=== PATIENT | male | born 1975 | race Caucasian/White ===

== ENCOUNTER → 2020-02-26 | Outpatient (CLI) | payer OTHER | END | disposition home or self-care (01) | LOC: STAR 11:01 | PROVIDERS: ATTEND Orthopaedic Surgery | DX: Z01.812 Encounter for preprocedural laboratory examination (principal); Z20.828 Contact with and (suspected) exposure to other viral communicable diseases | CPT/HCPCS: 87635 ==

== ENCOUNTER 2020-03-02 05:28 | Day surgery (SDC) | payer OTHER ==
[~2020-03-02] VITALS: Ht 182.9 cm; Wt 121.6 kg
[2020-03-02 06:07] VITALS: BP 159/91
[2020-03-02] MEDS ORDERED: CHLORHEXIDINE 15 ML UDC ONE (06:10)
[2020-03-02] MEDS ORDERED: EPINEPHRINE 1 MG/ML, 1ML ONE ×2 (06:11→06:13)
[2020-03-02] MEDS ORDERED: BUPIVACAINE/PF 0.25% ONE (06:11)
[2020-03-02] MEDS ORDERED: ROPIvacaine/PF 0.5%, 20 ML ONE (06:13)
[2020-03-02] MEDS ORDERED: LIDOCAINE 1%, 20ML ONE (06:13)
[2020-03-02] MEDS ORDERED: MIDAZOLAM 1 MG/ML, 5ML ONE (06:16)
[2020-03-02] MEDS ORDERED: FENTANYL PF 250 MCG/5ML ONE (06:17)
[2020-03-02] MEDS ORDERED: DIPHENHYDRAMINE 50 MG/ML, 1ML IVPush PRN (06:30)
[2020-03-02] MEDS ORDERED: LABETALOL 5MG/ML, 20ML IV PRN (06:30)
[2020-03-02] MEDS ORDERED: LACTATED RINGERS 1,000 ML IV SCH (06:30)
[2020-03-02] MEDS ORDERED: HYDROmorphone 1 MG/ML, 1ML INJ IVPush PRN (06:30)
[2020-03-02] MEDS ORDERED: PROMETHAZINE 25 MG/ML, 1ML IVPush PRN (06:30)
[2020-03-02] MEDS ORDERED: HALOPERIDOL 5 MG/ML IV PRN (06:30)
[2020-03-02] MEDS ORDERED: MEPERIDINE/PF 25MG/0.5ML IVPush PRN (06:30)
[2020-03-02] MEDS ORDERED: CHLORHEXIDINE 15 ML UDC MM ONE (06:30)
[2020-03-02] MEDS ORDERED: hydrALAzine 20 MG/ML, 1ML IV PRN (06:30)
[2020-03-02] MEDS ORDERED: HYDROcodone/APAP 7.5-325MG/15ML UDC PO PRN (06:30)
[2020-03-02] MEDS ORDERED: FENTANYL PF 100 MCG/2ML IV PRN (06:30)
[2020-03-02] MEDS ORDERED: ONDANSETRON 2MG/ML, 2ML ONE (09:05)
[2020-03-02] MEDS ORDERED: PROPOFOL 10 MG/ML, 20ML ONE (09:05)
[2020-03-02] MEDS ORDERED: ROCURONIUM 10MG/ML,5ML ONE (09:05)
[2020-03-02] MEDS ORDERED: SUCCINYLCHOLINE 20 MG/ML, 10ML ONE (09:05)
[2020-03-02] MEDS ORDERED: NEOSTIGMINE 1 MG/ML, 10ML ONE (09:05)
[2020-03-02] MEDS ORDERED: CEFAZOLIN 1,000 MG ONE ×2 (09:05)
[2020-03-02] MEDS ORDERED: GLYCOPYRROLATE 0.2MG/1ML, 5ML ONE (09:05)
[2020-03-02] MEDS ORDERED: DEXAMETHASONE 4 MG/ML, 1ML ONE (09:05)
== END 2020-03-02 11:15 | disposition home or self-care (01) ==
LOC: OUT 05:28
PROVIDERS: ATTEND Orthopaedic Surgery
DX: S83.271A Complex tear of lateral meniscus, current injury, right knee, initial encounter (principal); S83.241A Other tear of medial meniscus, current injury, right knee, initial encounter; M11.261 Other chondrocalcinosis, right knee; M22.41 Chondromalacia patellae, right knee; M65.861 Other synovitis and tenosynovitis, right lower leg; M25.371 Other instability, right ankle; M65.871 Other synovitis and tenosynovitis, right ankle and foot; M25.871 Other specified joint disorders, right ankle and foot; G89.18 Other acute postprocedural pain; I10 Essential (primary) hypertension; J45.909 Unspecified asthma, uncomplicated; Z79.1 Long term (current) use of non-steroidal anti-inflammatories (NSAID); Z79.891 Long term (current) use of opiate analgesic; Z79.899 Other long term (current) drug therapy; Z98.84 Bariatric surgery status; Z82.61 Family history of arthritis; Z82.49 Family history of ischemic heart disease and other diseases of the circulatory system; X58.XXXA Exposure to other specified factors, initial encounter; Y93.89 Activity, other specified; Y92.89 Other specified places as the place of occurrence of the external cause; Y99.8 Other external cause status
CPT/HCPCS: 27695; 29880; 29898; 64445; 64447; C1713; J0171; J0330; J0690; J1100; J2250; J2405; J2704; J2710; J2795; J3010; J7120